=== PATIENT | female | born 1985 | race Asian ===

== ENCOUNTER 2017-06-12 18:03 | Emergency (ER) | payer MEDICAID, OTHER ==
[~2017-06-12] VITALS: Ht 177.8 cm; Wt 77.1 kg
[2017-06-12 18:19] VITALS: BP 123/81
== END 2017-06-13 01:40 | disposition left against medical advice (07) ==
LOC: ER 18:03
DX: R05 Cough (principal); R79.9 Abnormal finding of blood chemistry, unspecified; Z53.21 Procedure and treatment not carried out due to patient leaving prior to being seen by health care provider